=== PATIENT | female | born 1990 | race Caucasian/White ===

== ENCOUNTER 2019-02-07 11:21 | Day surgery (SDC) | payer OTHER, MEDICAID ==
[~2019-02-07] VITALS: Ht 167.6 cm; Wt 72.9 kg
[2019-02-07] VITALS (7 sets, daily range): BP systolic 111–125; BP diastolic 68–86
[~2019-02-07 11:21] MED LIST: famotidine 20mg tablet PO ONE; ringers solution, lacted 1,000 ML IV SCH
[2019-02-07] MEDS ORDERED: NO HOME MEDS (11:42)
[2019-02-07 12:44] LABS: BASOPHILS % (AUTO) 0.6 % (0-1); EOSINOPHILS # (AUTO) 0.2 X10'3 (0-0.9); EOSINOPHILS % (AUTO) 3.5 % (0-6); LYMPHOCYTES # (AUTO) 1.5 X10'3 (1.1-4.8); LYMPHOCYTES % (AUTO) 27.4 % (21-51); MEAN CORPUSCULAR HEMOGLOBIN 30.5 PG (27.0-31.0); MEAN CORPUSCULAR HGB CONC 35.1 g/dL (33.0-36.5); MEAN PLATELET VOLUME 8.8 FL (7.4-10.4); MONOCYTES # (AUTO) 0.4 X10'3 (0-0.9); MONOCYTES % (AUTO) 7.5 % (2-12); NEUTROPHILS # (AUTO) 3.3 X10'3 (1.8-7.7); PRE OP HEMATOCRIT 40.8 % (35.0-45.0); PRE OP HEMOGLOBIN 14.3 g/dL (12.0-16.0); PRE OP PLATELET COUNT 200 X10'3 (140-440); RED CELL DISTRIBUTION WIDTH 12.5 % (11.5-14.5)
[2019-02-07 12:56] LABS: HCG SERUM QL NEGATIVE
[2019-02-07] MEDS ORDERED: ringers solution, lacted 1,000 ML IV SCH (13:07)
[2019-02-07] MEDS ORDERED: fentaNYL/PF 50MCG/1 ML 2ML syringe IV PRN ×2 (13:10)
[2019-02-07] MEDS ORDERED: hydrALAZINE 20mg/ml inj. IV PRN (13:10)
[2019-02-07] MEDS ORDERED: labetalol 20mg/4ml (5mg/ml) syringe IV PRN (13:10)
[2019-02-07] MEDS ORDERED: morphine 4 MG/ML inj SYRINge IV PRN ×2 (13:10)
[2019-02-07] MEDS ORDERED: ondansetron/PF 4mg/2ml inj IV PRN (13:10)
[2019-02-07] MEDS ORDERED: BUPIVAcaine/PF 2.5 mg/ml (0.25%) 30ml vial ONE (14:08)
[2019-02-07] MEDS ORDERED: LIDOcaine 1%/PF 5ML 10 MG/ML VIAL ONE (15:01)
[2019-02-07] MEDS ORDERED: dexamethasone sod phosphate 10mg/ml inj ONE (15:01)
[2019-02-07] MEDS ORDERED: sevoflurane 250ml liquid IH ONE (15:01)
[2019-02-07] MEDS ORDERED: ondansetron/PF 4mg/2ml inj ONE (15:04)
[2019-02-07] MEDS ORDERED: fentaNYL/PF 50MCG/1 ML 2ML syringe ONE (15:04)
[2019-02-07] MEDS ORDERED: dexamethasone sod phosphate 4mg/ml inj. ONE (15:04)
[2019-02-07] MEDS ORDERED: glycopyrrolate 0.2mg/ml inj ONE (15:04)
[2019-02-07] MEDS ORDERED: neostigmine methylsulfate 1 MG/ML 10ml vial ONE (15:04)
[2019-02-07] MEDS ORDERED: rocuronium 10mg/ml inj IV ONE (15:04)
[2019-02-07] MEDS ORDERED: propofol inj 20 ML IV ONE (15:04)
--- NOTE | 2019-02-07 16:07 | NUR ---
Received from OR via , accompanied by Anesthesiologist DR CANTU and report given by Anesthesiolgist. AWAKENS TO VOICE. VITALS STABLE. DRESSINGS DI. STATES MODERATE ABD DISCOMFORT.
--- NOTE | 2019-02-07 17:07 | NUR ---
AWAKE AND ORIENTED. VITALS STABLE. DRESSINGS DI. STATES PAIN IMPROVING. HOME WITH HER SPOUSE AT THIS TIME.
== END 2019-02-07 17:07 | disposition home or self-care (01) ==
LOC: PAS 11:21
PROVIDERS: ATTEND Specialist
DX: Z30.2 Encounter for sterilization (principal); R10.2 Pelvic and perineal pain; N92.0 Excessive and frequent menstruation with regular cycle; Z87.891 Personal history of nicotine dependence; Z88.8 Allergy status to other drugs, medicaments and biological substances; Z98.890 Other specified postprocedural states
CPT/HCPCS: 36415; 58563; 58670; 84703; 85025; 86885; 86900; 86901; A4264; J1100; J2270; J2405; J2704; J2710; J3010; J3490; J7120; A4355; A4618; A6258; A7000